=== PATIENT | female | born 1940 | race Caucasian/White ===

== ENCOUNTER 2020-08-24 16:54 | Emergency (ER) | payer MEDICARE, OTHER ==
[~2020-08-24 16:54] MED LIST: PROTONIX40 MG PO
[2020-08-24 19:16] LABS: HEMOGLOBIN 14.7 gm/dl (12.3-15.3); RED BLOOD COUNT 4.89 M/UL (4.00-5.10); WHITE BLOOD COUNT 3.1 K/UL (4.5-11.0)
[2020-08-24 19:35] LABS: BUN/CREATININE RATIO 16 (0-10)
== END 2020-08-25 00:15 | disposition home or self-care (01) ==
LOC: ER1 16:54
PROVIDERS: Physician Assistant Medical
DX: U07.1 COVID-19 (principal); Z88.1 Allergy status to other antibiotic agents; Z88.2 Allergy status to sulfonamides
CPT/HCPCS: 71045; 80053; 85025; 99283; M0239